=== PATIENT | male | born 1955 | race Caucasian/White ===

== ENCOUNTER 2019-10-20 10:34 | Day surgery (SDC) | payer MEDICARE, MEDICAID ==
[~2019-10-20] VITALS: Ht 170.2 cm; Wt 81.6 kg
[2019-10-20] MEDS ORDERED: DUTA0.5C15 PO (11:54)
[2019-10-20] MEDS ORDERED: TAMS-11 PO (11:54)
[2019-10-20] MEDS ORDERED: LACTATED RINGERS 1,000 ML IV SCH (12:00)
[2019-10-20] MEDS ORDERED: IOHEXOL-300 100 ML BOTTLE ONE (12:46)
[2019-10-20] MEDS ORDERED: FENTANYL CITRATE/PF 50MCG/ML 2ML VIAL ONE (13:02)
[2019-10-20] MEDS ORDERED: MIDAZOLAM HCL 2 MG/2 ML VIAL ONE (13:02)
[2019-10-20] MEDS ORDERED: PROPOFOL 200MG/20ML VIAL IV ONE (13:04)
[2019-10-20] MEDS ORDERED: ROCURONIUM BROMIDE 10MG/ML VIAL 5ML IV ONE (13:05)
[2019-10-20] MEDS ORDERED: PHENYLEPHRINE HCL 10 MG/ML 1ML (IV VIAL) IV ONE (13:08)
[2019-10-20] MEDS ORDERED: SUCCINYLCHOLINE CHLORIDE 200MG/10ML IV ONE (13:25)
[2019-10-20] MEDS ORDERED: SODIUM CHLORIDE 0.9% 10ML VIAL ONE ×2 (13:36→13:39)
[2019-10-20] MEDS ORDERED: CEFAZOLIN SODIUM 1000MG/VIAL ONE (13:36)
[2019-10-20] MEDS ORDERED: EPHEDRINE SULFATE 50MG/ML VIAL ONE (13:39)
[2019-10-20] MEDS ORDERED: ONDANSETRON HCL 4MG/2ML INJ ONE (14:02)
[2019-10-20] MEDS ORDERED: METOCLOPRAMIDE HCL 10MG/2ML VIAL ONE (14:02)
[2019-10-20] MEDS ORDERED: HYDROMORPHONE HCL/PF 2MG/ML CPJ IV PRN (14:45)
== END 2019-10-20 15:55 | disposition home or self-care (01) ==
LOC: OR 10:34
PROVIDERS: ATTEND Urology
DX: N20.2 Calculus of kidney with calculus of ureter (principal); J98.11 Atelectasis; N40.0 Benign prostatic hyperplasia without lower urinary tract symptoms; F17.210 Nicotine dependence, cigarettes, uncomplicated; Z82.49 Family history of ischemic heart disease and other diseases of the circulatory system; Z98.890 Other specified postprocedural states; Z79.899 Other long term (current) drug therapy
CPT/HCPCS: 50590; 71045; 93005; J0330; J0690; J2250; J2370; J2405; J2704; J2765; J3010; J3490; Q9967